=== PATIENT | male | born 1955 | race Caucasian/White ===

== ENCOUNTER 2017-08-05 13:34 | Emergency (ER) | payer BC, OTHER ==
[~2017-08-05] VITALS: Ht 180.3 cm; Wt 90.7 kg
[~2017-08-05 13:34] MED LIST: CETI10TA20 PO; PANT40TA2 PO
--- OUTSIDE RECORDS SUMMARY | 2017-08-05 13:38 | XMS REPORT | Continuity of Care Document ---
Author Author [facility] Organization [facility] Address Unknown Phone Unavailable Allergies Active Description Code Type Severity Reaction Onset Reported/Identified Relationship to Patient Clinical Status Yes No Known Drug Allergies [id number] Drug Allergy Unknown N/A 05/22/2015 Medications There is no data. Problems Date Dx Coded Attending Type Code Diagnosis Diagnosed By 03/27/2014 DEMARCO AUGUSTINE DO Ot 553.3 03/27/2014 DEMARCO AUGUSTINE DO Ot 787.20 05/22/2015 DEMARCO AUGUSTINE DO Ot K21.9 05/22/2015 DEMARCO AUGUSTINE DO Ot K29.70 05/22/2015 DEMARCO AUGUSTINE DO Ot K44.9 05/22/2015 DEMARCO AUGUSTINE DO Ot K57.90 05/22/2015 DEMARCO AUGUSTINE DO Ot K63.5 05/22/2015 DEMARCO AUUGSTINE DO Ot Z11.2 05/22/2015 DEMARCO AUGUSTINE DO Ot Z80.0 05/23/2015 DEMARCO AUGUSTINE DO Ot K21.9 05/23/2015 DEMARCO AUGUTSINE DO Ot K29.70 05/23/2015 DEMARCO AUGUSTINE DO Ot K44.9 05/23/2015 DEMARCO AUGUSTINE DO Ot K57.90 05/23/2015 DEMARCO AUGUSTINE DO Ot K63.5 05/23/2015 DEMARCO AUGUSTINE DO Ot Z11.2 05/23/2015 DEMARCO AUGUSTINE DO Ot Z80.0 Procedures There is no data. Results There is no data. Encounters ACCT No. Visit Date/Time Discharge Status Pt. Type Provider Facility Loc./Unit Complaint [id number] 05/22/2015 07:02:00 05/22/2015 09:25:00 DIS Outpatient DEMARCO AUGUSTINE DO [facility] [id number] 05/21/2015 05:34:00 05/21/2015 10:26:00 DIS Outpatient DEMARCO AUGUSTINE DO [facility] PREOP [id number] 11/18/2012 08:43:00 11/18/2012 23:59:59 CLS Outpatient DEMARCO AUGUSTINE DO [facility] RAD
[2017-08-05] MEDS ORDERED: ONDANSETRON 4 MG/2 ML (SDV) Z0FRAN IVP ONE (14:00)
[2017-08-05] MEDS ORDERED: MECLIZINE 25 MG (ANTIVERT) TAB PO ONE (14:00)
[2017-08-05] MEDS ORDERED: SCOPOLAMINE 1.5 MG (TRANSDERM-SCOP) PATCH TD ONE (14:00)
--- NOTE | 2017-08-05 14:04 | ED General ---
General Chief Complaint: Abdominal/GI Problems Stated Complaint: DIZZINESS,NAUSEA Nursing Triage Note: pt c/o nausea and dizziness since waking this morning. pt states he feels as if room is spinning. pt states he woke up with burleson. pt states he has never experienced anything like this before. Nursing Sepsis Screen: No Definite Risk Source of Information: Patient Exam Limitations: No Limitations History of Present Illness Date Seen by Provider: Aug 05, 2017 Time Seen by Provider: 13:44 Initial Comments PT ARRIVES VIA POV FROM HOME STATES HE HAD SUDDEN ONSET OF DIZZINESS, AROUND 0730 THIS AM WHILE AT WORK, HAD BEEN UP SINCE 0430 AND DID USUAL ACTIVITIES--WATERING OUTSIDE, ETC. THEN WENT TO WORK. DIZZINESS IS SPINNING SENSATION AND COMES AND GOES, IS WORSE WITH POSITION CHANGES AND HEAD MOVEMENTS HAD BEEN TO WORK THIS MORNING, AND DIZZINESS WAS A LITTLE BETTER, THEN AROUND 1300, HE CAME HOME AND LAID DOWN FOR 10 MINUTES AND WAS VERY DIZZY, THEN WHEN HE GOT UP IT WAS WORSE, AND WAS VERY NAUSEATED. NO VOMITING HAS HAD A HEADACHE SINCE WAKING--OCCIPITAL AREA--NOT UNUSUAL FOR PT TO HAVE A HEADACHE LIKE THIS, HAS NOT TAKEN ANYTHING FOR HEADACHE HEADACHE IS MILD AT THIS TIME NO VISION CHANGES, OTHER THAN THINGS ARE SPINNING WHEN THE DIZZINESS IS BAD. NO FEVER NO PARESTHESIAS OR MOTOR DEFICITS NO CHEST PAIN NO SHORTNESS OF BREATH NO PALPITATIONS NO RECENT ILLNESS, URI/SINUS SYMPTOMS. NO EAR COMPLAINTS NO HISTORY OF SIMILAR PCP: DR. CUELLAR Allergies and Home Medications Allergies Coded Allergies: No Known Drug Allergies (Verified , 05/22/15) Home Medications Cetirizine HCl 10 Mg Tablet, 10 MG PO DAILY, (Reported) Diazepam 5 Mg Tablet, 2.5-5 MG PO Q6H PRN for DIZZINESS Prescribed by: AIDEN HEALY on 08/05/171513 Meclizine HCl 25 Mg Tablet, 25-50 MG PO Q6H Prescribed by: AIDEN HEALY on 08/05/171513 Ondansetron 8 Mg Tab.rapdis, 8 MG PO Q4H Prescribed by: AIDEN HEALY on 08/05/171513 Pantoprazole Sodium 40 Mg Tablet.dr, 40 MG PO DAILY, (Reported) Scopolamine 1 Each Patch.td72, 1 EACH TD Q72 HOURS Prescribed by: AIDEN HEALY on 6/13/18 1514 Patient Home Medication List Home Medication List Reviewed: Yes Review of Systems Constitutional: see HPI; No chills, No diaphoresis; dizziness; No fever, No malaise, No weakness EENTM: no symptoms reported, other (HAS SEASONAL ALLERGIES, BUT NO PROBLEMS WITH TAKING ZYRTEC ON DAILY BASIS); No nose congestion Respiratory: no symptoms reported Cardiovascular: no symptoms reported Gastrointestinal: see HPI; No abdominal pain; nausea; No vomiting Genitourinary: no symptoms reported Musculoskeletal: no symptoms reported Skin: no symptoms reported Psychiatric/Neurological: See HPI, Headache; Denies Numbness, Denies Paresthesia, Denies Seizure, Denies Tingling, Denies Tremors, Denies Weakness Hematologic/Lymphatic: No Symptoms Reported Immunological/Allergic: no symptoms reported Past Zmfnkhx-Pquibk-Aclsqg Hx Patient Social History Alcohol Use: Denies Use Recreational Drug Use: No Recent Foreign Travel: No Contact w/Someone Who Travel: No Recent Infectious Disease Expo: No Immunizations Up To Date Date of Influenza Vaccine: Dec 25, 2014 Seasonal Allergies Seasonal Allergies: Yes Past Medical History Surgeries: Yes (LEFT SHOULDER SCOPE X2, /ROTATOR CUFF REPAIR) Orthopedic Respiratory: No Cardiac: No Neurological: No Gastrointestinal: Yes Gastroesophageal Reflux Musculoskeletal: Yes (LEFT SHOULDER ROTATOR CUFF REPAIR X 2 ) Endocrine: No HEENT: No Cancer: No Psychosocial: No Blood Disorders: No Physical Exam Vital Signs Vital Signs - First Documented 08/05/17 08/05/17 13:38 15:24 Temp 97.5 Pulse 16 Resp 12 B/P (MAP) 133/95 (108) Pulse Ox 93 O2 Delivery Room Air Capillary Refill : Less Than 3 Seconds General Appearance: No Apparent Distress, WD/WN HEENT: PERRL/EOMI, TMs Normal, Normal ENT Inspection, Pharynx Normal, Other ( NO SINUS TENDERNESS. 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; No Abnormal Gait Skin: Normal Color, Warm/Dry Progress/Results/Core Measures Suspected Sepsis Recent Fever Within 48 Hours: No Infection Criteria Present: None New/Unexplained Altered Menta: No Sepsis Screen: No Definite Risk SIRS Temperature:97.5 Pulse: 16 Respiratory Rate: Laboratory Tests 08/05/17 14:00: White Blood Count 5.8 Blood Pressure 133 /95 Mean: 108 Laboratory Tests 08/05/17 14:00: Creatinine 0.99, INR Comment 1.1, Platelet Count 193, Total Bilirubin 0.5 Results/Orders Lab Results Laboratory Tests Test 08/05/17 14:00 Range/Units White Blood Count 5.8 4.3-11.0 10^3/uL Red Blood Count 4.75 4.35-5.85 10^6/uL Hemoglobin 14.7 13.3-17.7 G/DL Hematocrit 41 40-54 % Mean Corpuscular Volume 87 80-99 FL Mean Corpuscular Hemoglobin 31 25-34 PG Mean Corpuscular Hemoglobin Concent 36 32-36 G/DL Red Cell Distribution Width 13.3 10.0-14.5 % Platelet Count 193 130-400 10^3/uL Mean Platelet Volume 10.3 7.4-10.4 FL Neutrophils (%) (Auto) 58 42-75 % Lymphocytes (%) (Auto) 27 12-44 % Monocytes (%) (Auto) 10 0-12 % Eosinophils (%) (Auto) 4 0-10 % Basophils (%) (Auto) 1 0-10 % Neutrophils # (Auto) 3.4 1.8-7.8 X 10^3 Lymphocytes # (Auto) 1.6 1.0-4.0 X 10^3 Monocytes # (Auto) 0.6 0.0-1.0 X 10^3 Eosinophils # (Auto) 0.3 0.0-0.3 10^3/uL Basophils # (Auto) 0.0 0.0-0.1 10^3/uL Prothrombin Time 13.7 12.2-14.7 SEC INR Comment 1.1 0.8-1.4 Activated Partial Thromboplast Time 28 24-35 SEC Sodium Level 139 135-145 MMOL/L Potassium Level 3.8 3.6-5.0 MMOL/L Chloride Level 106 98-107 MMOL/L Carbon Dioxide Level 23 21-32 MMOL/L Anion Gap 10 5-14 MMOL/L Blood Urea Nitrogen 14 7-18 MG/DL Creatinine 0.99 0.60-1.30 MG/DL Estimat Glomerular Filtration Rate > 60 BUN/Creatinine Ratio 14 Glucose Level 112 H 70-105 MG/DL Calcium Level 9.2 8.5-10.1 MG/DL Magnesium Level 2.0 1.8-2.4 MG/DL Total Bilirubin 0.5 0.1-1.0 MG/DL Aspartate Amino Transf (AST/SGOT) 28 5-34 U/L Alanine Aminotransferase (ALT/SGPT) 31 0-55 U/L Alkaline Phosphatase 60 40-136 U/L Troponin I < 0.30 <0.30 NG/ML Total Protein 7.0 6.4-8.2 GM/DL Albumin 4.1 3.2-4.5 GM/DL My Orders Orders - AIDEN HEALY DO Saline Lock/Iv-Start (08/05/17 13:55) Ekg Tracing (08/05/17 13:55) Monitor-Rhythm Ecg Trace Only (08/05/17 13:55) Ct Head Wo-R/O Stroke (08/05/17 13:55) Cbc With Automated Diff (08/05/17 13:55) Comprehensive Metabolic Panel (08/05/17 13:55) Magnesium (08/05/17 13:55) Protime With Inr (08/05/17 13:55) Partial Thromboplastin Time (08/05/17 13:55) Troponin I (08/05/17 13:55) Ondansetron Injection (Zofran Injectio (08/05/17 14:00) Scopolamine Patch (Transderm-Scop Patch) (08/05/17 14:00) Meclizine Tablet (Antivert Tablet) (08/05/17 14:00) Medications Given in ED Current Medications Medications Dose Ordered Sig/Jacob Route Start Time Stop Time Status Last Admin Dose Admin Meclizine HCl 50 mg ONCE ONCE PO 08/05/17 14:00 08/05/17 14:01 DC 08/05/17 14:10 50 MG Ondansetron HCl 4 mg ONCE ONCE IVP 08/05/17 14:00 08/05/17 14:01 DC 08/05/17 14:07 4 MG Scopolamine 1.5 mg ONCE ONCE TD 08/05/17 14:00 08/05/17 14:01 DC 08/05/17 14:11 1.5 MG Vital Signs/I&O 08/05/17 08/05/17 13:38 15:24 Temp 97.5 97.8 Pulse 16 68 Resp 12 B/P (MAP) 133/95 (108) 124/74 Pulse Ox 93 O2 Delivery Room Air Room Air Capillary Refill : Less Than 3 Seconds Blood Pressure Mean: 108 Progress Note : Progress Note SYMPTOMS IMPROVED WHEN LAYING STILL, INCREASED WITH MOVEMENTS OF HEAD AND WITH WHEELCHAIR RIDE TO/FROM XRAY DEPT. OFFERED ADDITIONAL MEDICATIONS FOR NAUSEA AND DIZZINESS, AND PT DECLINES AT THIS TIME. ADVISED PT THAT IF SYMPTOMS WORSENED, HE SHOULD RETURN TO ER. ECG Initial ECG Impression Date: Aug 05, 2017 Initial ECG Impression Time: 14:18 Initial ECG Rate: 62 Initial ECG Rhythm: Normal Sinus Initial ECG Comparisson: No Previous ECG Available Diagnostic Imaging Comments CT HEAD--NO ACUTE PROCESS, PER RADIOLOGIST REPORT @ 1450 Reviewed: Reviewed by Me Departure Impression Primary Impression: Vertigo Disposition: 01 HOME, SELF-CARE Condition: Stable Departure-Patient Inst. Referrals: ANGELA CUELLAR MD (PCP/Family) Primary Care Physician Patient Instructions: Vertigo (a Type of Dizziness) (DC), Vestibular Exercises Add. Discharge Instructions: SLOW POSITION CHANGES LOTS OF CLEAR LIQUIDS TYLENOL AND MOTRIN NEEDED FOR HEADACHE FOLLOW UP WITH DR. CUELLAR IN 1-2 DAYS FOR FURTHER CARE RETURN TO ER IF SYMPTOMS WORSEN All discharge instructions reviewed with patient and/or family. Voiced understanding. Scripts Diazepam (Valium) 5 Mg Tablet 2.5-5 MG PO Q6H PRN for DIZZINESS, #20 TAB Prov: AIDEN HEALY DO 08/05/17 Scopolamine (Transderm-Scop) 1 Each Patch.td72 1 EACH TD Q72 HOURS for Dizziness, #3 PATCH Prov: AIDEN HEALY DO 08/05/17 Ondansetron (Zofran Odt) 8 Mg Tab.rapdis 8 MG PO Q4H for Nausea/Vomiting, #14 TAB Prov: AIDEN HEALY DO 08/05/17 Meclizine HCl (Meclizine HCl) 25 Mg Tablet 25-50 MG PO Q6H for Dizziness, #30 TAB Prov: AIDEN HEALY DO 08/05/17 AIDEN HEALY DO Aug 05, 2017 14:04
[2017-08-05 14:09] LABS: BASOPHILS % (AUTO) 1 % (0-10); EOSINOPHILS # (AUTO) 0.3 10^3/uL (0.0-0.3); EOSINOPHILS % (AUTO) 4 % (0-10); HEMATOCRIT 41 % (40-54); HEMOGLOBIN 14.7 G/DL (13.3-17.7); LYMPHOCYTES # (AUTO) 1.6 X 10^3 (1.0-4.0); LYMPHOCYTES % (AUTO) 27 % (12-44); MEAN CORPUSCULAR HEMOGLOBIN 31 PG (25-34); MEAN CORPUSCULAR HGB CONC 36 G/DL (32-36); MEAN CORPUSCULAR VOLUME 87 FL (80-99); MEAN PLATELET VOLUME 10.3 FL (7.4-10.4); MONOCYTES # (AUTO) 0.6 X 10^3 (0.0-1.0); MONOCYTES % (AUTO) 10 % (0-12); NEUTROPHILS # (AUTO) 3.4 X 10^3 (1.8-7.8); NEUTROPHILS % (AUTO) 58 % (42-75); PLATELET COUNT 193 10^3/uL (130-400); RED BLOOD COUNT 4.75 10^6/uL (4.35-5.85); RED CELL DISTRIBUTION WIDTH 13.3 % (10.0-14.5); WHITE BLOOD COUNT 5.8 10^3/uL (4.3-11.0)
[2017-08-05 14:31] LABS: ALANINE AMINOTRANSFERASE 31 U/L (0-55); ALBUMIN 4.1 GM/DL (3.2-4.5); ALKALINE PHOSPHATASE 60 U/L (40-136); BILIRUBIN,TOTAL 0.5 MG/DL (0.1-1.0); BUN/CREATININE RATIO 14; CALCIUM 9.2 MG/DL (8.5-10.1); CARBON DIOXIDE 23 MMOL/L (21-32); CHLORIDE 106 MMOL/L (98-107); CREATININE SERUM 0.99 MG/DL (0.60-1.30); GFR ESTIMATED > 60; GLUCOSE 112 MG/DL (70-105); POTASSIUM 3.8 MMOL/L (3.6-5.0); SODIUM 139 MMOL/L (135-145)
[2017-08-05 14:32] LABS: INR 1.1 (0.8-1.4); PROTHROMBIN TIME PATIENT 13.7 SEC (12.2-14.7)
--- NOTE | 2017-08-05 14:43 | Diagnostic Imaging Report ---
INDICATION: Headache and dizziness. CT HEAD: Multiple contiguous axial CT images of the head were obtained. FINDINGS: Ventricles and sulci are within normal limits for size. There is no intracranial hemorrhage identified. There is no abnormal mass effect or shift of midline structures. IMPRESSION: Unremarkable CT of the head. Dictated by: Dictated on workstation # [id number]
[2017-08-05] MEDS ORDERED: MECL-106 PO (15:14)
[2017-08-05] MEDS ORDERED: ONDA8TAB9 PO (15:14)
[2017-08-05] MEDS ORDERED: SCOP1PAT11 TD (15:14)
[2017-08-05] MEDS ORDERED: DIAZ5TAB PO (15:14)
[2017-08-05 15:24] VITALS: BP 124/74
== END 2017-08-05 15:24 | disposition home or self-care (01) ==
LOC: EDUNIT# 13:34 → ER 13:35
DX: R42 Dizziness and giddiness (principal); K21.9 Gastro-esophageal reflux disease without esophagitis; Z98.890 Other specified postprocedural states
CPT/HCPCS: 36415; 70450; 80053; 83735; 84484; 85025; 85610; 85730; 93005; 93041; 96374

== ENCOUNTER 2018-09-01 15:30 | Outpatient (CLI) | payer OTHER ==
[~2018-09-01] VITALS: Ht 180.3 cm; Wt 90.7 kg
[~2018-09-01 15:30] MED LIST changes: +DIAZ5TAB PO; +MECL-106 PO; +ONDA8TAB9 PO; +SCOP1PAT11 TD
== END 2018-09-01 15:41 | disposition home or self-care (01) ==
LOC: PREOP 15:30
PROVIDERS: ATTEND Surgery
DX: Z01.818 Encounter for other preprocedural examination (principal)

== ENCOUNTER 2018-09-03 09:36 | Day surgery (SDC) | payer BC, OTHER ==
[~2018-09-03] VITALS: Ht 180.3 cm; Wt 90.7 kg
[2018-09-03] MEDS ORDERED: LACTATED RINGERS 1,000 ML IV ONE (09:41)
[2018-09-03 10:10] VITALS: BP 126/92
[2018-09-03] MEDS ORDERED: LACTATED RINGERS 1,000 ML IV STA (10:25)
[2018-09-03] MEDS ORDERED: HURRICAINE EXT TUBE (BENZOCAINE) XX PRN (10:30)
[2018-09-03] MEDS ORDERED: HURRICAINE EXT TUBE (BENZOCAINE) ONE (10:37)
[2018-09-03] MEDS ORDERED: proPOfol 200 MG/20 ML (DIPRIVAN) VIAL IV ONE (10:51)
[2018-09-03 11:35] VITALS: BP 117/67
--- NOTE | 2018-09-03 11:39 | Progress Note-Post Operative ---
Post-Operative Progess Note Surgeon (s)/Medical Oncology Physician (s) Surgeon DEMARCO AUGUSTINE DO Medical Oncology Physician: na Pre-Operative Diagnosis gerd, family history colon cancer Post-Operative Diagnosis hiatal hernia, diverticulosis Procedure & Operative Findings Date of Procedure 09/03/18 Procedure Performed/Findings egd c biopsies, colonoscopy Anesthesia Type per mda Estimated Blood Loss Estimated blood loss (mL): none Specimens/Packing Specimens Removed antrum, ge DEMARCO AUGUSTINE DO Sep 03, 2018 11:39
[2018-09-03 11:40] VITALS: BP 116/72
[2018-09-03] MEDS ORDERED: SUCR1TAB36 PO (11:40)
--- NOTE | 2018-09-03 11:41 | Discharge Inst-Simple/Standard ---
Discharge Inst-Standard Discharge Medications New, Converted or Re-Newed RX: Transmitted to Pharmacy Patient Instructions/Follow Up Plan of Care/Instructions/FU: 2-3 weeks debbie Activity as Tolerated: Yes Discharge Diet: Regular Diet (high fiber) DEMARCO AUGUSTINE DO Sep 03, 2018 11:41
[2018-09-03 12:10] VITALS: BP 131/90
--- NOTE | 2018-09-03 13:11 | Anesthesia-General Post-Op ---
MAC Patient Condition Mental Status/LOC: Same as Preop Cardiovascular: Satisfactory Nausea/Vomiting: Absent Respiratory: Satisfactory Pain: Controlled Complications: Absent Post Op Complications Complications None Follow Up Care/Instructions Patient Instructions None needed. Anesthesiology Discharge Order Discharge Order Patient is doing well, no complaints, stable vital signs, no apparent adverse anesthesia problems. No complications reported per nursing. IZABELLA HE CRNA Sep 03, 2018 13:11
--- NOTE | 2018-09-03 15:43 | OPERATIVE REPORT ---
DATE OF SERVICE: 09/03/2018 PREOPERATIVE DIAGNOSES: 1. Dysphagia. 2. Family history of colon cancer. POSTOPERATIVE DIAGNOSES: 1. Hiatal hernia. 2. Diverticulosis. PROCEDURE: EGD with biopsies and colonoscopy. SURGEON: Demarco Celis DO ANESTHESIA: Per MDA. ESTIMATED BLOOD LOSS: None. COMPLICATIONS: None. INDICATIONS: The patient is a 63-year-old male with family history of colon cancer and also been having some recent dysphagia. He understands risks and benefits of procedure and wished to proceed with procedure. Consent was signed and on the chart. DESCRIPTION OF PROCEDURE: The patient was taken to the endoscopy suite, placed in left lateral recumbent position. Timeout was performed. Scope was inserted in the mouth, down the esophagus, stomach and into the duodenum without difficulty. There were no polyps, masses or ulcerations of the duodenum. Scope was then slowly retracted back where it was further insufflated. There were no polyps, masses or ulcerations within the antrum. Biopsy of the antrum was obtained. Scope was retroflexed noting a small polyp and small hiatal hernia, no other pathology noted. Scope was returned to its normal position, slowly withdrawn to the distal esophagus, which had normal appearance. No polyps, masses or ulcerations. No erythematous changes. Biopsy of the GE junction was obtained. Scope was then slowly retracted back to completely removed noting no other pathology. Digital rectal exam was performed. There were no palpable polyps, masses or ulcerations. Scope was inserted in the rectum and advanced all the way to the cecum with minimal difficulty. Prep was adequate. Scope was then slowly retracted back. There were no polyps, masses or ulcerations within the cecum, ascending, transverse, descending and sigmoid colon. Throughout the colon, had minimal to moderate amount of diverticulosis present. Once in the rectum, scope was retroflexed noting no other pathology. Scope was returned to its normal position, slowly withdrawn until completely removed. The patient tolerated procedure well without any complications. He was taken to recovery room in stable condition. RECOMMENDATIONS: The patient will consider adding Carafate 1 gram four times a day to see if any improvement. The patient will need repeat colonoscopy in 5 years due to family history of colon cancer. If he has any issues before that, he should be seen at that time. The patient was also recommended high fiber diet due to diverticulosis. Job ID: [id number] DocumentID: [id number] Dictated Date: 09/03/2018 11:48:23 Medical Administrator Date: 09/03/2018 15:42:47 Dictated By: DEMARCO CELIS DO
--- OUTSIDE RECORDS SUMMARY | 2018-09-03 18:53 | XMS REPORT | Continuity of Care Document ---
Author Organization Unknown Address Unknown Allergies Active Description Code Type Severity Reaction Onset Reported/Identified Relationship to Patient Clinical Status Yes No Known Drug Allergies [id number] Drug Allergy Unknown N/A 09/01/2018 Medications There is no data. Problems Date Dx Coded Attending Type Code Diagnosis Diagnosed By 03/27/2014 DEMARCO AUGUSTINE DO Ot 553.3 03/27/2014 DEMARCO AUGUSTINE DO Ot 787.20 05/22/2015 DEMARCO AUGUSTINE DO Ot K21.9 GASTRO-ESOPHAGEAL REFLUX DISEASE WITHOUT 05/22/2015 DEMARCO AUGUSTINE DO Ot K29.70 GASTRITIS, UNSPECIFIED, WITHOUT BLEEDING 05/22/2015 DEMARCO AUGUSTINE DO Ot K44.9 DIAPHRAGMATIC HERNIA WITHOUT OBSTRUCTION 05/22/2015 DEMARCO AUGUSTINE DO Ot K57.90 DVRTCLOS OF INTEST, PART UNSP, W/O PERF 05/22/2015 DEMARCO AUGUSTINE DO Ot K63.5 POLYP OF COLON 05/22/2015 DEMARCO AUGUSTINE DO Ot Z11.2 ENCOUNTER FOR SCREENING FOR OTHER BACTER 05/22/2015 DEMARCO AUGUSTINE DO Ot Z80.0 FAMILY HISTORY OF MALIGNANT NEOPLASM OF 05/23/2015 DEMARCO AUGUSTINE DO Ot K21.9 05/23/2015 DEMARCO AUGUSTINE DO Ot K29.70 05/23/2015 DEMARCO AUGUSTINE DO Ot K44.9 05/23/2015 DEMARCO AUGUSTINE DO Ot K57.90 05/23/2015 DEMARCO AUGUSTINE DO Ot K63.5 05/23/2015 DEMARCO AUGUSTINE DO Ot Z11.2 05/23/2015 DEMARCO AUGUSTINE DO Ot Z80.0 08/05/2017 DEMARCO AUGUSTINE DO Ot 553.3 DIAPHRAGMATIC HERNIA 08/05/2017 DEMARCO AUGUSTINE DO Ot 787.20 DYSPHAGIA, UNSPECIFIED 08/05/2017 JONATHON HEALY DOA K Ot K21.9 GASTRO-ESOPHAGEAL REFLUX DISEASE WITHOUT 08/05/2017 NIRAJ DOAIDEN Ot R42 DIZZINESS AND GIDDINESS 08/05/2017 NIRAJ , AIDEN K Ot Z98.890 OTHER SPECIFIED POSTPROCEDURAL STATES 08/07/2017 NIRAJ AIDEN ROBLES Ot K21.9 GASTRO-ESOPHAGEAL REFLUX DISEASE WITHOUT 08/07/2017 NIRAJ DO, AIDEN Bustillo Ot R42 DIZZINESS AND GIDDINESS 08/07/2017 NIRAJ DO, AIDEN Bustillo Ot Z98.890 OTHER SPECIFIED POSTPROCEDURAL STATES 08/31/2018 AUGUSTINE DO, DEMARCO D Ot Z01.818 ENCOUNTER FOR OTHER PREPROCEDURAL EXAMIN 09/01/2018 AUGUSTINE DO, DEMARCO D Ot Z01.818 ENCOUNTER FOR OTHER PREPROCEDURAL EXAMIN 09/01/2018 AUGUSTINE DO, DEMARCO D Ot Z01.818 ENCOUNTER FOR OTHER PREPROCEDURAL EXAMIN Procedures There is no data. Results Test Result Range Complete blood count (CBC) with automated white blood cell (WBC) differential - 08/05/17 14:00 Blood leukocytes automated count (number/volume) 5.8 10*3/uL 4.3-11.0 Blood erythrocytes automated count (number/volume) 4.75 10*6/uL 4.35-5.85 Venous blood hemoglobin measurement (mass/volume) 14.7 g/dL 13.3-17.7 Blood hematocrit (volume fraction) 41 % 40-54 Automated erythrocyte mean corpuscular volume 87 [foz_us] 80-99 Automated erythrocyte mean corpuscular hemoglobin (mass per erythrocyte) 31 pg 25-34 Automated erythrocyte mean corpuscular hemoglobin concentration measurement (mass/volume) 36 g/dL 32-36 Automated erythrocyte distribution width ratio 13.3 % 10.0- 14.5 Automated blood platelet count (count/volume) 193 10*3/uL 130-400 Automated blood platelet mean volume measurement 10.3 [foz_us] 7.4-10.4 Automated blood neutrophils/100 leukocytes 58 % 42-75 Automated blood lymphocytes/100 leukocytes 27 % 12-44 Blood monocytes/100 leukocytes 10 % 0-12 Automated blood eosinophils/100 leukocytes 4 % 0-10 Automated blood basophils/100 leukocytes 1 % 0-10 Blood neutrophils automated count (number/volume) 3.4 10*3 1.8-7.8 Blood lymphocytes automated count (number/volume) 1.6 10*3 1.0-4.0 Blood monocytes automated count (number/volume) 0.6 10*3 0.0- 1.0 Automated eosinophil count 0.3 10*3/uL 0.0-0.3 Automated blood basophil count (count/volume) 0.0 10*3/uL 0.0-0.1 Comprehensive metabolic panel - 08/05/17 14:00 Serum or plasma sodium measurement (moles/volume) 139 mmol/L 135-145 Serum or plasma potassium measurement (moles/volume) 3.8 mmol/L 3.6-5.0 Serum or plasma chloride measurement (moles/volume) 106 mmol/L 98-107 Carbon dioxide 23 mmol/L 21-32 Serum or plasma anion gap determination (moles/volume) 10 mmol/L 5-14 Serum or plasma urea nitrogen measurement (mass/volume) 14 mg/dL 7-18 Serum or plasma creatinine measurement (mass/volume) 0.99 mg/dL 0.60-1.30 Serum or plasma urea nitrogen/creatinine mass ratio 14 NRG Serum or plasma creatinine measurement with calculation of estimated glomerular filtration rate > NRG Serum or plasma glucose measurement (mass/volume) 112 mg/dL 70-105 Serum or plasma calcium measurement (mass/volume) 9.2 mg/dL 8.5-10.1 Serum or plasma total bilirubin measurement (mass/volume) 0.5 mg/dL 0.1-1.0 Serum or plasma alkaline phosphatase measurement (enzymatic activity/volume) 60 U/L 40-136 Serum or plasma aspartate aminotransferase measurement (enzymatic activity/volume) 28 U/L 5-34 Serum or plasma alanine aminotransferase measurement (enzymatic activity/volume) 31 U/L 0-55 Serum or plasma protein measurement (mass/volume) 7.0 g/dL 6.4-8.2 Serum or plasma albumin measurement (mass/volume) 4.1 g/dL 3.2-4.5 Magnesium - 08/05/17 14:00 Magnesium 2.0 mg/dL 1.8-2.4 PT panel in platelet poor plasma by coagulation assay - 08/05/17 14:00 Prothrombin time (PT) in platelet poor plasma by coagulation assay 13.7 s 12.2-14.7 INR in platelet poor plasma or blood by coagulation assay 1.1 0.8-1.4 Activated partial thromboplastin time (aPTT) in platelet poor plasma bycoagulation assay - 08/05/17 14:00 Activated partial thromboplastin time (aPTT) in platelet poor plasma bycoagulation assay 28 s 24-35 Serum or plasma troponin i.cardiac measurement (mass/volume) - 08/05/17 14:00 Serum or plasma troponin i.cardiac measurement (mass/volume) < ng/mL <0.30 Encounters ACCT No. Visit Date/Time Discharge Status Pt. Type Provider Facility Loc./Unit Complaint [id number] 09/01/2018 15:30:00 09/01/2018 15:41:00 DIS Outpatient DEMARCO AUGUSTINE DO Via [facility] PREOP COLONOSCOPY [id number] 08/05/2017 13:35:00 08/05/2017 15:24:00 DIS Emergency NIRAJ AIDEN ROBLES [facility] ER DIZZINESS,NAUSEA [id number] 05/22/2015 07:02:00 05/22/2015 09:25:00 [facility] [id number] 05/21/2015 05:34:00 05/21/2015 10:26:00 DIS Outpatient DEMARCO AUGUSTINE DO [facility] PREOP [id number] 11/18/2012 08:43:00 11/18/2012 23:59:59 CLS Outpatient DEMARCO AUGUSTINE DO [facility] RAD DYSPHAGIA [id number] 09/03/2018 09:36:00 ACT Outpatient DEMARCO AUGUSTINE DO [facility] ENDO SCREENING
== END 2018-09-03 12:10 | disposition home or self-care (01) ==
LOC: ENDO 09:36
PROVIDERS: ATTEND Surgery
DX: Z12.11 Encounter for screening for malignant neoplasm of colon (principal); K44.9 Diaphragmatic hernia without obstruction or gangrene; K57.30 Diverticulosis of large intestine without perforation or abscess without bleeding; R13.10 Dysphagia, unspecified; Z80.0 Family history of malignant neoplasm of digestive organs; K31.7 Polyp of stomach and duodenum; K21.9 Gastro-esophageal reflux disease without esophagitis; Z79.899 Other long term (current) drug therapy

== ENCOUNTER 2018-11-17 14:02 | Inpatient (IN) | payer BC ==
[~2018-11-17] VITALS: Ht 177.8 cm; Wt 91.6 kg
[~2018-11-17 14:02] MED LIST changes: -PANT40TA3 PO; -PSYL1PAC10 PO
[2018-11-17 14:08] VITALS: BP 114/81
[2018-11-17] MEDS ORDERED: CATHETER FLUSH 10 ML SYR IV PRN (14:30)
[2018-11-17 14:31] VITALS: BP 114/81
--- NOTE | 2018-11-17 14:31 | Consultation - Hospitalist ---
HPI History of Present Illness: HPI/Chief Complaint Pt is a 63yoCM with a PMH of GERD who was admitted for SBO. He states his symptoms started yesterday at 10AM yesterday. He states he had severe abdominal pain that he described as cramping. This started after he took three teaspoons of Metamucil yesterday. He also had nausea nd vomiting. This morning his PCP arranged an outpatient CT Abdomen which reportedly revealed an SBO for which his is admitted. He states his pain is currently "not bad" and rates it a 4/10. I am consulted for medical management. Source: patient, family Date Seen 11/17/18 Attending Physician Armand Celis DO PCP Volodymyr Dooley MD Referring Physician Date of Admission Nov 17, 2018 at 14:02 Home Medications & Allergies Home Medications Reviewed patient Home Medication Reconciliation performed by pharmacy medication reconciliations field contact technician and/or nursing. Patients Allergies have been reviewed. Allergies Allergies Coded Allergies No Known Drug Allergies (Verified09/01/18) Past Oqrzulc-Xlceoj-Rzfrsg Hx Past Med/Social Hx: Reviewed Nursing Past Med/Soc Hx Patient Social History Employed/Student: employed Alcohol Use: Denies Use Recreational Drug Use: No Smoking Status: Never a Smoker 2nd Hand Smoke Exposure: No Recent Foreign Travel: No (N) Contact w/other who traveled: No Recent Hopitalizations: No Immunizations Up To Date Date of Influenza Vaccine: Nov 30, 2017 Seasonal Allergies Seasonal Allergies: Yes Past Medical History Surgeries: Orthopedic (shoulder) Sexually Transmitted Disease: No HIV/AIDS: No Gastrointestinal: Gastroesophageal Reflux Musculoskeletal: Arthritis Loss of Vision: Denies Hearing Impairment: Denies Cancer: Skin History of Blood Disorders: No Adverse Reaction to Blood Ware: No (N/A) Family History Reviewed Nursing Family Hx No Pertinent Family Hx Review of Systems Constitutional: no symptoms reported Respiratory: no symptoms reported Cardiovascular: no symptoms reported Gastrointestinal: see HPI Genitourinary: no symptoms reported Musculoskeletal: muscle cramps Skin: no symptoms reported Psychiatric/Neurological: No Symptoms Reported Physical Exam Physical Exam Vital Signs Vital Signs - First Documented 11/17/18 14:08 Temp 37.4 Pulse 65 Resp 18 B/P (MAP) 114/81 (92) Pulse Ox 95 O2 Delivery Room Air Capillary Refill : Height, Weight, BMI Height: 5'11.00" Weight: 200lbs. 0.0oz. [id number]; 27.9 BMI Method:Stated General Appearance: No Apparent Distress, WD/WN HEENT: PERRL/EOMI, Moist Mucous Membranes; No Scleral Icterus (L), No Scleral Icterus (R) Neck: Normal Inspection; No Thyromegaly Respiratory: Lungs Clear, No Accessory Muscle Use, No Respiratory Distress Cardiovascular: Regular Rate, Rhythm, No Murmur Gastrointestinal: Soft, Abnormal Bowel Sounds (present but slow); No Distended, No Guarding, No Rebound; Tenderness (very mild, not localized) Extremity: Normal Capillary Refill, No Calf Tenderness, No Pedal Edema Neurologic/Psychiatric: Alert, Oriented x3, Normal Mood/Affect Skin: Normal Color, Warm/Dry Results Results/Procedures Labs Patient resulted labs reviewed. Imaging: Reviewed Imaging Report Assessment/Plan Assessment and Plan Assess & Plan/Chief Complaint SBO NPO Bowel rest Discussed with Dr Celis- will hold off on NGT at this time give minimal distention Morphine for pain prn Zofran for nausea prn GERD Will start Protonix IV to replace home dose NS @125ml/hr NPO SCDs Diagnosis/Problems Diagnosis/Problems (1) Small bowel obstruction Status: Acute Clinical Quality Measures DVT/VTE Risk/Contraindication: Risk Factor Score Per Nursin RFS Level Per Nursing on Admit: 1=Low/No VTE PPX GUY ARREOLA MD Nov 17, 2018 14:31
[2018-11-17] MEDS: ONDANSETRON 4 MG/2 ML (SDV) Z0FRAN IV PRN (14:43)
[2018-11-17] MEDS ORDERED: PANT40TA3 PO (14:48)
[2018-11-17] MEDS ORDERED: PSYL1PAC10 PO (14:48)
[2018-11-17] MEDS: NS IV 1000 ML 1,000 ML IV SCH ×2 (15:08→23:10)
[2018-11-17 15:47] LABS: BASOPHILS % (AUTO) 0 % (0-10); EOSINOPHILS # (AUTO) 0.1 10^3/uL (0.0-0.3); EOSINOPHILS % (AUTO) 1 % (0-10); HEMATOCRIT 46 % (40-54); LYMPHOCYTES # (AUTO) 1.4 X 10^3 (1.0-4.0); LYMPHOCYTES % (AUTO) 16 % (12-44); MEAN CORPUSCULAR HEMOGLOBIN 30 PG (25-34); MEAN CORPUSCULAR HGB CONC 35 G/DL (32-36); MEAN CORPUSCULAR VOLUME 86 FL (80-99); MEAN PLATELET VOLUME 10.2 FL (7.4-10.4); MONOCYTES # (AUTO) 1.1 X 10^3 (0.0-1.0); MONOCYTES % (AUTO) 13 % (0-12); NEUTROPHILS # (AUTO) 6.1 X 10^3 (1.8-7.8); NEUTROPHILS % (AUTO) 71 % (42-75); PLATELET COUNT 188 10^3/uL (130-400); RED CELL DISTRIBUTION WIDTH 13.3 % (10.0-14.5); WHITE BLOOD COUNT 8.6 10^3/uL (4.3-11.0)
[2018-11-17 16:00] VITALS: BP 120/76
[2018-11-17 16:14] LABS: ALANINE AMINOTRANSFERASE 28 U/L (0-55); ALBUMIN 4.2 GM/DL (3.2-4.5); ALKALINE PHOSPHATASE 61 U/L (40-136); BILIRUBIN,TOTAL 0.6 MG/DL (0.1-1.0); BUN/CREATININE RATIO 14; CALCIUM 9.9 MG/DL (8.5-10.1); CARBON DIOXIDE 24 MMOL/L (21-32); CHLORIDE 104 MMOL/L (98-107); GFR ESTIMATED > 60; GLUCOSE 100 MG/DL (70-105); POTASSIUM 3.8 MMOL/L (3.6-5.0); SODIUM 140 MMOL/L (135-145); TOTAL PROTEIN 7.3 GM/DL (6.4-8.2)
[2018-11-17 20:00] VITALS: BP 112/71
--- NOTE | 2018-11-17 20:47 | History & Physical-Surgical ---
[facility] 11/17/182046: History of Present Illness History of Present Illness Reason for visit/HPI This is a 63 year old male that presents with partial small bowel obstruction and abdominal pain. Patient reports that he felt crampy abdominal pain at 10am yesterday while driving. Patient denies ever experiencing this in the past. Eating makes the pain worse and not eating makes the pain better, however patient is not in any pain at this time. Patient has had 7 episodes of non- bloody emesis starting at 4pm yesterday. Patient has not passed gas but had a bowel movement at 9:30am today. Patient denied blood or any change in his stool. Patients abdomen was not distended nor tender to palpation. Date of Admission Nov 17, 2018 at 14:02 Date Seen by a Provider: Nov 17, 2018 Time Seen by a Provider: 18:00 I consulted on this patient on 11/17/18 18:00 Attending Physician Demarco Celis DO Admitting Physician Volodymyr Dooley MD Consult Allergies and Home Medications Allergies Coded Allergies: No Known Drug Allergies (Verified , 09/01/18) Home Medications Cetirizine HCl 10 Mg Tablet, 10 MG PO DAILY, (Reported) Pantoprazole Sodium 40 Mg Tablet.dr, 40 MG PO DAILY, (Reported) Psyllium Husk (with Sugar) 3.4 Gm Powd.pack, 3.4 GM PO DAILY, (Reported) Patient Home Medication List Home Medication List Reviewed: Yes Past Rwswsqi-Rztdmz-Xdpdqk Hx Patient Social History Alcohol Use: Denies Use Recreational Drug Use: No Smoking Status: Never a Smoker 2nd Hand Smoke Exposure: No Recent Foreign Travel: No Contact w/Someone Who Travel: No Recent Infectious Disease Expo: No Recent Hopitalizations: No Immunizations Up To Date Date of Influenza Vaccine: Nov 30, 2017 Seasonal Allergies Seasonal Allergies: Yes Surgeries History of Surgeries: Yes (LEFT SHOULDER SCOPE X2) Surgeries: Orthopedic (shoulder) Respiratory History of Respiratory Disorde: No Cardiovascular History of Cardiac Disorders: No Neurological History of Neurological Disord: No Reproductive System Sexually Transmitted Disease: No HIV/AIDS: No Genitourinary History of Genitourinary Disor: No Gastrointestinal History of Gastrointestinal Di: Yes Gastrointestinal Disorders: Gastroesophageal Reflux Musculoskeletal History of Musculoskeletal Dis: Yes Musculoskeletal Disorders: Arthritis Endocrine History of Endocrine Disorders: No HEENT History of HEENT Disorders: No Loss of Vision: Denies Hearing Impairment: Denies Cancer History of Cancer: No Cancer: Skin Psychosocial History of Psychiatric Problem: No Integumentary History of Skin or Integumenta: No Blood Transfusions History of Blood Disorders: No Adverse Reaction to a Blood Tr: No (N/A) Family Medical History Significant Family History: No Pertinent Family Hx Family Medial History: Hypertension 19 MOTHER Review of Systems Constitutional: no symptoms reported EENTM: no symptoms reported Respiratory: no symptoms reported Cardiovascular: no symptoms reported Gastrointestinal: see HPI Genitourinary: no symptoms reported Musculoskeletal: no symptoms reported Skin: no symptoms reported Psychiatric/Neurological: No Symptoms Reported Physical Exam Vital Signs Vital Signs - First Documented 11/17/18 14:08 Temp 37.4 Pulse 65 Resp 18 B/P (MAP) 114/81 (92) Pulse Ox 95 O2 Delivery Room Air Capillary Refill : Height, Weight, BMI Height: 5'11.00" Weight: 200lbs. 0.0oz. 90.563461oa; 28.97 BMI Method:Stated General Appearance: No Apparent Distress, WD/WN HEENT: PERRL/EOMI Neck: Normal Inspection, Non Tender, Supple Respiratory: No Accessory Muscle Use, No Respiratory Distress Cardiovascular: Regular Rate, Rhythm, No Edema Gastrointestinal: Non Tender, Soft; No Distended, No Guarding, No Hernia, No Rebound, No Tenderness Rectal: Deferred Back: No CVA Tenderness Extremity: Normal Inspection, No Pedal Edema Neurologic/Psychiatric: Alert, Oriented x3, No Motor/Sensory Deficits, Normal Mood/Affect, final tester II-XII Norm as Tested Skin: Normal Color, Warm/Dry Lymphatic: No Adenopathy Data Review Labs Laboratory Tests 11/17/18 15:40: White Blood Count 8.6, Red Blood Count 5.29, Hemoglobin 16.0, Hematocrit 46, Mean Corpuscular Volume 86, Mean Corpuscular Hemoglobin 30, Mean Corpuscular Hemoglobin Concent 35, Red Cell Distribution Width 13.3, Platelet Count 188, Mean Platelet Volume 10.2, Neutrophils (%) (Auto) 71, Lymphocytes (%) (Auto) 16, Monocytes (%) (Auto) 13H, Eosinophils (%) (Auto) 1, Basophils (%) (Auto) 0, Neutrophils # (Auto) 6.1, Lymphocytes # (Auto) 1.4, Monocytes # (Auto) 1.1H, Eosinophils # (Auto) 0.1, Basophils # (Auto) 0.0, Sodium Level 140, Potassium Level 3.8, Chloride Level 104, Carbon Dioxide Level 24, Anion Gap 12, Blood Urea Nitrogen 17, Creatinine 1.20, Estimat Glomerular Filtration Rate > 60, BUN/Creatinine Ratio 14, Glucose Level 100, Calcium Level 9.9, Corrected Calcium 9.7, Total Bilirubin 0.6, Aspartate Amino Transf (AST/SGOT) 23, Alanine Aminotransferase (ALT/SGPT) 28, Alkaline Phosphatase 61, Total Protein 7.3, Albumin 4.2 Assessment/Plan Assessment/Plan Assessment/Plan Partial small bowel obstruction Abdominal pain at onset of symptoms yesterday - resolved today Small bowel follow through NPO IV Fluids Clinical Quality Measures DVT/VTE Risk/Contraindication: Risk Factor Score Per Nursin RFS Level Per Nursing on Admit: 1=Low/No VTE PPX EDMARCO CELIS DO 11/18/18 0820: History of Present Illness History of Present Illness Reason for visit/HPI seen by Dr. Dooley in office this morning. Had crampy abdominal pain periumbilical yesterday and continued this morning. Having nausea and emesis with any intake. Had Ct scan abd/pelvis and suggestive of small bowel obstruction. Currently pain is resolved, but not passing any flatus today. His abdomen he states was distended but has gone down. Small bm this morning. No blood in stools. Denies fever sweats chills shortness of breath or chest pain. Allergies and Home Medications Allergies Coded Allergies: No Known Drug Allergies (Verified , 09/01/18) Home Medications Cetirizine HCl 10 Mg Tablet, 10 MG PO DAILY, (Reported) Pantoprazole Sodium 40 Mg Tablet.dr, 40 MG PO DAILY, (Reported) Psyllium Husk (with Sugar) 3.4 Gm Powd.pack, 3.4 GM PO DAILY, (Reported) Patient Home Medication List Home Medication List Reviewed: Yes Past Ifqiisw-Ulneqp-Falhlh Hx Patient Social History Alcohol Use: Denies Use Recreational Drug Use: No Smoking Status: Never a Smoker Surgeries Surgeries: Orthopedic (shoulder) Respiratory History of Respiratory Disorde: No Cardiovascular History of Cardiac Disorders: No Neurological History of Neurological Disord: No Gastrointestinal History of Gastrointestinal Di: Yes Gastrointestinal Disorders: Gastroesophageal Reflux Musculoskeletal History of Musculoskeletal Dis: Yes Musculoskeletal Disorders: Arthritis HEENT History of HEENT Disorders: No Hearing Impairment: Denies Cancer History of Cancer: No Psychosocial History of Psychiatric Problem: No Family Medical History Significant Family History: No Pertinent Family Hx Family Medial History: Hypertension 19 MOTHER Review of Systems Constitutional: no symptoms reported EENTM: no symptoms reported Respiratory: no symptoms reported Cardiovascular: no symptoms reported Gastrointestinal: see HPI Genitourinary: no symptoms reported Musculoskeletal: no symptoms reported Skin: no symptoms reported Psychiatric/Neurological: No Symptoms Reported Physical Exam General Appearance: No Apparent Distress, WD/WN HEENT: PERRL/EOMI Neck: Normal Inspection, Non Tender, Supple Respiratory: Chest Non Tender, No Accessory Muscle Use, No Respiratory Distress Cardiovascular: Regular Rate, Rhythm Gastrointestinal: Non Tender; No Distended, No Guarding, No Hernia Rectal: Deferred Back: No CVA Tenderness Extremity: Normal Inspection, No Pedal Edema Neurologic/Psychiatric: Alert, Oriented x3, No Motor/Sensory Deficits, Normal Mood/Affect, final tester II-XII Norm as Tested Skin: Normal Color, Warm/Dry Lymphatic: No Adenopathy Assessment/Plan Assessment/Plan Admission Diagonsis abdominal pain periumbilical psbo Admission Status: Observation Assessment/Plan partial small bowel obstruction abdominal pain periumbilical npo iv fluids will give bowel rest today and small bowel follow through in am if normal will start on diet if continues to feel well. Supervisory-Addendum Brief Verification & Attestation Participated in pt care: history, MDM, physical Personally performed: exam, history, MDM, supervision of care Care discussed with: Medical Student Procedures: n/a Results interpretation: Verified all documentation Verification and Attestation of Medical Student E/M Service A medical student performed and documented this service in my presence. I reviewed and verified all information documented by the medical student and made modifications to such information, when appropriate. I personally performed the physical exam and medical decision making. Demarco Celis, Nov 17, 2018,18:50 [facility] Nov 17, 2018 20:47 DEMARCO CELIS DO Nov 18, 2018 08:20
[2018-11-17] MEDS: morphine INJ 4 MG/ML 1 ML (VIAL/SYRINGE) IV PRN (21:43)
[2018-11-17 23:59] VITALS: BP 104/70
[2018-11-18 04:00] VITALS: BP 103/65
[2018-11-18] MEDS: morphine INJ 4 MG/ML 1 ML (VIAL/SYRINGE) IV PRN (06:04)
--- NOTE | 2018-11-18 06:11 | NUR ---
PT REQUEST 1MG OF MORPHINE FOR HEADACHE. PT STATES THAT HE GETS HEADACHES A COUPLE TIMES A WEEK SO THIS IS NOT UNUSUAL FOR HIM.
[2018-11-18 06:19] LABS: BASOPHILS % (AUTO) 0 % (0-10); EOSINOPHILS # (AUTO) 0.2 10^3/uL (0.0-0.3); EOSINOPHILS % (AUTO) 3 % (0-10); HEMATOCRIT 44 % (40-54); HEMOGLOBIN 14.9 G/DL (13.3-17.7); LYMPHOCYTES # (AUTO) 1.6 X 10^3 (1.0-4.0); LYMPHOCYTES % (AUTO) 24 % (12-44); MEAN CORPUSCULAR HEMOGLOBIN 30 PG (25-34); MEAN CORPUSCULAR HGB CONC 34 G/DL (32-36); MEAN CORPUSCULAR VOLUME 88 FL (80-99); MEAN PLATELET VOLUME 10.5 FL (7.4-10.4); MONOCYTES # (AUTO) 0.8 X 10^3 (0.0-1.0); MONOCYTES % (AUTO) 12 % (0-12); NEUTROPHILS # (AUTO) 3.9 X 10^3 (1.8-7.8); NEUTROPHILS % (AUTO) 60 % (42-75); PLATELET COUNT 177 10^3/uL (130-400); RED CELL DISTRIBUTION WIDTH 13.5 % (10.0-14.5); WHITE BLOOD COUNT 6.5 10^3/uL (4.3-11.0)
[2018-11-18 06:51] LABS: ALANINE AMINOTRANSFERASE 24 U/L (0-55); ALBUMIN 3.7 GM/DL (3.2-4.5); ALKALINE PHOSPHATASE 63 U/L (40-136); BILIRUBIN,TOTAL 0.6 MG/DL (0.1-1.0); BUN/CREATININE RATIO 14; CALCIUM 8.9 MG/DL (8.5-10.1); CARBON DIOXIDE 25 MMOL/L (21-32); CHLORIDE 107 MMOL/L (98-107); GFR ESTIMATED > 60; GLUCOSE 93 MG/DL (70-105); POTASSIUM 4.1 MMOL/L (3.6-5.0); SODIUM 140 MMOL/L (135-145); TOTAL PROTEIN 6.5 GM/DL (6.4-8.2)
[2018-11-18] MEDS ORDERED: DIATRIZOATE MEGLUM/SODIUM 37% 120 ML (GASTROGRAFIN) PO ONE (08:45)
[2018-11-18 09:00] VITALS: BP 125/70
[2018-11-18] MEDS ORDERED: PANTOPRAZOLE 40 MG (PROTONIX) VIAL IV SCH (09:00)
--- NOTE | 2018-11-18 09:30 | Diagnostic Imaging Report ---
INDICATION: Partial small bowel obstruction. The patient ingested contrast material and serial radiographs of the abdomen were obtained. The bowel gas pattern has improved when compared with the boiler tube reamer radiograph from the CT study one day earlier. No dilated small bowel loops are identified. Colon is unremarkable. Postingestion radiograph shows normal appearance to the stomach. There is prompt emptying into the small bowel. There is normal transit of contrast through the small bowel to the right colon. No obstruction is seen. Mucosal fold pattern is unremarkable. No mass is identified. IMPRESSION: Unremarkable small bowel study. There is no evidence of small bowel obstruction. Dictated by: Dictated on workstation # [id number]
[2018-11-18] MEDS ORDERED: KETOROLAC 15 MG/ML VIAL IVP PRN (10:00)
[2018-11-18] MEDS: NS IV 1000 ML 1,000 ML IV SCH ×2 (10:16→15:22)
[2018-11-18] MEDS: ONDANSETRON 4 MG/2 ML (SDV) Z0FRAN IV PRN (10:18)
[2018-11-18 11:40] VITALS: BP 126/81
--- NOTE | 2018-11-18 15:24 | NUR ---
AMBULATING IN HALLWAYS. Addendum: 11/18/18 at 1525 by ALYSON RHOADES RN Amended: Links added.
[2018-11-18 16:00] VITALS: BP 128/83
[2018-11-18 16:58] VITALS: BP 128/83
--- NOTE | 2018-11-18 17:05 | NUR ---
SUNNY WETZEL demonstrates understanding of discharge instructions and accurately returns instructions upon questioning. Copy of Post-Discharge Instructions and Medication Discharge Instructions given to PATIENT AND SIGNIFICANT OTHER. SUNNY WETZEL is able to manage continuing needs after discharge. Patients belongings returned to PATIENT. Skin dry and intact; no breakdown noted. Patient discharged from 404-1 on 11/18/2018 at 1649 . SUNNY WETZEL left floor via AMBULATORY, accompanied by FAMILY AND STAFF.
--- NOTE | 2018-11-18 17:27 | Progress Note - Surgery ---
[facility] 11/18/18 1727: Subjective Date Seen by a Provider: Nov 18, 2018 Time Seen by a Provider: 10:30 Subjective/Events-last exam Patient is experiencing headaches since last night. Has not had a bowel movement but is passing flatus. denies any abdominal pain. small bowel follow through showed no obstruction. Discussed discharging patient today. Review of Systems General: No Chills HEENT: Head Aches Pulmonary: No Dyspnea, No Cough Cardiovascular: No: Chest Pain, Palpitations, Edema Gastrointestinal: No: Nausea, Vomiting, Abdominal Pain, Diarrhea, Melena, Hematochezia Genitourinary: No Dysuria Neurological: No: Incoordination, Change in speech, Confusion, Seizures Objective Exam Vital Signs Date Time Temp Pulse Resp B/P (MAP) Pulse Ox O2 Delivery O2 Flow Rate FiO2 11/18/18 16:58 37.1 62 18 128/83 98 Room Air 11/18/18 16:00 37.1 62 18 128/83 (98) 98 Room Air 11/18/18 11:40 36.7 64 16 126/81 (96) 95 Room Air 11/18/18 09:00 36.8 62 14 125/70 (88) 94 Room Air 11/18/18 08:00 Room Air 11/18/18 04:00 36.2 59 18 103/65 (78) 90 Room Air 11/17/18 23:59 36.8 80 16 104/70 (81) 95 Room Air 11/17/18 20:00 37.5 68 18 112/71 (85) 94 Room Air 11/17/18 19:45 Room Air I & O 11/18/18 07:00 Intake Total 1000 ml Output Total 450 ml Balance 550 ml Capillary Refill : General Appearance: No Apparent Distress, WD/WN HEENT: PERRL/EOMI, Pharynx Normal Neck: Normal Inspection, Non Tender, Supple Respiratory: Chest Non Tender, No Accessory Muscle Use, No Respiratory Distress Cardiovascular: Regular Rate, Rhythm, No Edema Gastrointestinal: non tender, soft Extremity: Normal Inspection, Non Tender, No Pedal Edema Neurologic/Psychiatric: Alert, Oriented x3, No Motor/Sensory Deficits, Normal Mood/Affect, robotics technician II-XII Norm as Tested Skin: Normal Color, Warm/Dry Lymphatic: No Adenopathy Results Lab Laboratory Tests 11/18/18 05:55: White Blood Count 6.5, Red Blood Count 5.00, Hemoglobin 14.9, Hematocrit 44, Mean Corpuscular Volume 88, Mean Corpuscular Hemoglobin 30, Mean Corpuscular Hemoglobin Concent 34, Red Cell Distribution Width 13.5, Platelet Count 177, Mean Platelet Volume 10.5H, Neutrophils (%) (Auto) 60, Lymphocytes (%) (Auto) 24, Monocytes (%) (Auto) 12, Eosinophils (%) (Auto) 3, Basophils (%) (Auto) 0, Neutrophils # (Auto) 3.9, Lymphocytes # (Auto) 1.6, Monocytes # (Auto) 0.8, Eosinophils # (Auto) 0.2, Basophils # (Auto) 0.0, Sodium Level 140, Potassium Level 4.1, Chloride Level 107, Carbon Dioxide Level 25, Anion Gap 8, Blood Urea Nitrogen 15, Creatinine 1.10, Estimat Glomerular Filtration Rate > 60, BUN/Creatinine Ratio 14, Glucose Level 93, Calcium Level 8.9, Corrected Calcium 9.1, Total Bilirubin 0.6, Aspartate Amino Transf (AST/SGOT) 22, Alanine Aminotransferase (ALT/SGPT) 24, Alkaline Phosphatase 63, Total Protein 6.5, Albumin 3.7 Assessment/Plan Assessment/Plan Assessment/Plan partial small bowel obstruction - resolved - small bowel follow through showed no obstruction. abdominal pain periumbilical - resolved discussed discharge with patient recommended flu vaccine unrestricted diet Clinical Quality Measures DVT/VTE Risk/Contraindication: Risk Factor Score Per Nursin RFS Level Per Nursing on Admit: 1=Low/No VTE PPX DEMARCO CELIS DO 11/18/18 1920: Subjective Subjective/Events-last exam Patient not having any abdominal pain. Passing flatus. Has headache, which has from time to time.Went for small bowel follow through this am with no evidence of obstruction and dilated loops resolved. No evidence of any mass. Objective Exam General Appearance: No Apparent Distress, WD/WN HEENT: PERRL/EOMI, Normal ENT Inspection Neck: Normal Inspection, Non Tender, Supple Respiratory: Chest Non Tender, No Accessory Muscle Use, No Respiratory Distress Cardiovascular: Regular Rate, Rhythm Gastrointestinal: non tender, soft Extremity: Normal Inspection, Non Tender Neurologic/Psychiatric: Alert, Oriented x3, Normal Mood/Affect Skin: Normal Color, Warm/Dry Lymphatic: No Adenopathy Assessment/Plan Assessment/Plan Assessment/Plan psbo, abominal pain periumbilical resolved and small bowel follow through not showing any evidence of obstruction. will start on clears and then if tolerates okay to dc home patient in agreement with plan. patient understands has possibility of having this return if does need to be reevaluated at that time. Final Diagnosis psbo, periumbilical abdominal pain -resolved Supervisory-Addendum Brief Verification & Attestation Participated in pt care: history, MDM, physical Personally performed: exam, history, MDM, supervision of care Care discussed with: Medical Student Procedures: n/a Results interpretation: Verified all documentation Verification and Attestation of Medical Student E/M Service A medical student performed and documented this service in my presence. I reviewed and verified all information documented by the medical student and made modifications to such information, when appropriate. I personally performed the physical exam and medical decision making. Demarco Celis, Nov 18, 2018,19:21 [facility] Nov 18, 2018 17:27 DEMARCO CELIS DO Nov 18, 2018 19:20
== END 2018-11-18 16:49 | disposition home or self-care (01) | DRG 390 ==
LOC: 4TH 14:02
PROVIDERS: ADMIT Surgery; ATTEND Surgery
DX: K56.600 Partial intestinal obstruction, unspecified as to cause (principal); K21.9 Gastro-esophageal reflux disease without esophagitis; M19.91 Primary osteoarthritis, unspecified site
CPT/HCPCS: 36415; 74176; 74250; 80053; 85025

== ENCOUNTER → 2018-11-17 | Outpatient (CLI) | payer BC ==
[~2018-11-17] MED LIST changes: +PANT40TA3 PO; +PSYL1PAC10 PO; +SUCR1TAB36 PO
--- NOTE | 2018-11-17 14:19 | Diagnostic Imaging Report ---
PROCEDURE: CT abdomen and pelvis without contrast. TECHNIQUE: Multiple contiguous axial images were obtained through the abdomen and pelvis without the use of intravenous contrast. Auto Exposure Controls were utilized during the CT exam to meet ALARA standards for radiation dose reduction. INDICATION: Upper abdominal pain and vomiting. COMPARISON: No prior studies are available for comparison. FINDINGS: Imaging through the lung bases show some linear scarring or atelectasis in the right lower lobe. The liver demonstrates generalized low density consistent with hepatic steatosis. No discrete liver mass is identified. Gallbladder is unremarkable. No biliary duct dilatation is seen. The pancreas and spleen are unremarkable apart from a small partially calcified low-density lesion in the inferior tip of the spleen measuring 12 mm. No adrenal mass is identified. No definite renal calculi or hydronephrosis is identified. Aorta is nonaneurysmal. There are moderately distended and fluid-filled small bowel loops in the mid and left abdomen. There is a transition to normal caliber small bowel loops. Transition may be in the left lower quadrant, exact etiology indeterminate. Colon is decompressed. There is diverticulosis of the sigmoid colon but no evidence of acute diverticulitis. Appendix is unremarkable in the right lower quadrant. No free fluid or fluid collection is identified. Bladder is unremarkable. Prostate is enlarged. IMPRESSION: 1. Hepatic steatosis. 2. Moderate fluid-filled distention of small bowel loops in the mid and left abdomen with transition to normal caliber bowel loops. Findings are consistent with small bowel obstruction. No free air or abscess formation is seen at this time. 3. Uncomplicated sigmoid diverticulosis. 4. Prostatomegaly. Report was faxed to office of Dr. Dooley by filomena at 2:19p.m. Dictated by: Dictated on workstation # [id number]
== END ==
LOC: RAD 11:16
PROVIDERS: ATTEND Family Medicine
DX: K56.609 Unspecified intestinal obstruction, unspecified as to partial versus complete obstruction (principal); K76.0 Fatty (change of) liver, not elsewhere classified; K63.89 Other specified diseases of intestine; K57.30 Diverticulosis of large intestine without perforation or abscess without bleeding; N40.0 Benign prostatic hyperplasia without lower urinary tract symptoms
CPT/HCPCS: 74176

== ENCOUNTER 2020-11-07 05:30 | Outpatient (RCR) | payer BC ==
[~2020-11-07 05:30] MED LIST changes: +ASCO500C17 PO; -CETI10TA20 PO; +CETI10TA49 PO; -MECL-106 PO; +MECL-149 PO; +NF-VITD400 PO; +PANT40TA52 PO; +PSYL1PAC10 PO
== END 2020-11-07 08:56 | disposition home or self-care (01) ==
LOC: PREOP 05:30
PROVIDERS: ATTEND Specialist
DX: Z01.818 Encounter for other preprocedural examination (principal); C44.319 Basal cell carcinoma of skin of other parts of face; Z20.822 Contact with and (suspected) exposure to COVID-19
CPT/HCPCS: 87635

== ENCOUNTER 2020-11-09 12:10 | Day surgery (SDC) | payer BC ==
[~2020-11-09] VITALS: Ht 180.3 cm; Wt 91.6 kg
[2020-11-09] VITALS (9 sets, daily range): BP systolic 123–152; BP diastolic 88–95
[~2020-11-09 12:10] MED LIST changes: +SCOP1PAT10 TD; -SCOP1PAT11 TD
[2020-11-09] MEDS ORDERED: LACTATED RINGERS 1,000 ML IV PRN (13:00)
[2020-11-09] MEDS ORDERED: ceFAZolin 2 GM IV Premixed 50 ML IV ONE (13:00)
[2020-11-09] MEDS ORDERED: LIDOCAINE PF 2% 5 ML (XYLOCAINE) VIAL ONE (13:50)
[2020-11-09] MEDS ORDERED: proPOfol 200 MG/20 ML (DIPRIVAN) VIAL IV ONE ×6 (13:50→18:37)
[2020-11-09] MEDS ORDERED: LIDOCAINE/EPI 2% 1:100,00 (XYLOCAINE) 20 ML VIAL ONE ×2 (13:51→17:21)
--- NOTE | 2020-11-09 13:54 | Progress Note-Pre Operative ---
Pre-Operative Progress Note H&P Reviewed The H&P was reviewed, patient examined and no changes noted. Date Seen by Provider: Nov 09, 2020 Time Seen by Provider: 13:00 Date H&P Reviewed: Nov 09, 2020 Time H&P Reviewed: 13:15 Pre-Operative Diagnosis: BCCA left cheek DEVORAH BRADFORD DDS Nov 09, 2020 13:54
[2020-11-09] MEDS ORDERED: HYDROcodone/APAP 7.5MG-325 MG/15 ML (LORTAB) UDC PO PRN ×2 (14:00)
[2020-11-09] MEDS ORDERED: ceFAZolin INJECTION 1,000 MG in WATER (STERILE) FOR INJECTION 10 ML IV SCH ×4 (14:00)
[2020-11-09] MEDS ORDERED: BSS 15 ML ONE (15:39)
[2020-11-09] MEDS ORDERED: ROPIVACAINE 5MG/ML 30ML VIAL ONE (17:04)
[2020-11-09] MEDS ORDERED: ceFAZolin INJECTION 2,000 MG ONE (18:03)
[2020-11-09] MEDS ORDERED: PROPOFOL INJECTION 50 ML IV ONE (18:12)
--- NOTE | 2020-11-09 19:37 | Anesthesia-General Post-Op ---
MAC Patient Condition Mental Status/LOC: Same as Preop Cardiovascular: Satisfactory Nausea/Vomiting: Absent Respiratory: Satisfactory Pain: Controlled Complications: Absent Post Op Complications Complications None Follow Up Care/Instructions Patient Instructions None needed. Anesthesiology Discharge Order Discharge Order Patient is doing well, no complaints, stable vital signs, no apparent adverse anesthesia problems. LEONIDES WILSON DO Nov 09, 2020 19:37
[2020-11-09] MEDS ORDERED: ONDANSETRON 4 MG/2 ML (SDV) Z0FRAN IVP PRN (19:45)
[2020-11-09] MEDS ORDERED: morphine INJ 10 MG/ML 1ML (SYR OR VIAL) IVP ONE (19:45)
--- NOTE | 2020-12-06 03:18 | OPERATIVE REPORT ---
DATE OF SERVICE: 11/09/2020 SALES ENABLEMENT CONSULTANT SURGEON: Devorah Bradford DDS MAIL MESSENGER CONTRACTOR: Scrub nurse. ANESTHESIA: Monitored anesthesia care. BLOOD LOSS: 50 mL. FLUIDS: 1400 mL of crystalloid. COUNTS: Instrument, needle and sponge count were correct x2. PREOPERATIVE DIAGNOSIS: Basal cell carcinoma left dorsum of the nose, at the junction of the cheek. POSTOPERATIVE DIAGNOSIS: Basal cell carcinoma left dorsum of the nose, at the junction of the cheek. Basal cell carcinoma of left cheek confirmed by frozen section. PROCEDURE: Excision with primary reconstruction with direct advancement flap. HISTORY OF PRESENT ILLNESS AND INDICATIONS FOR PROCEDURE: The patient is an otherwise healthy 65-year-old white male, who presented with a lesion, which has been operated on in the past. With this lesion was originally had clear margins, but this was approximately a decade ago. After evaluating this, it appeared that again he either had a new primary or recurrence of his basal cell carcinoma. I spoke with him and we elected to perform the procedure at [facility] due to the fact that we would be able to have a frozen section completed at this time to make sure that we had clear margins. After affording him the opportunity for questions, then these were answered and he was scheduled for surgery at the earliest opportune time. DESCRIPTION OF PROCEDURE: The patient was taken to the operating room and placed on the operating table. Intravenous access had been gained in day surgery. After he was adequately sedated, we deposited local anesthesia in and around the left cheek and infraorbital rim and on the lateral alar cartilages and the dorsum of the nose. This allowed to take effect, I then excised around the lesion, taking approximately 3 mm margin and then dissected inferiorly down through the skin and subcuticular tissue and then this lesion was removed, it was approximately 1.5 x 1.5 cm. This was marked and sent for frozen section. After this was determined that we had positive margins including the margin, we then divided into six regions and then we proceeded to take continued frozen sections in this manner. Firstly, we gained the clear margin after removing more subcuticular fat tissue down to the level of the nasalis muscle and this was marked and sent for frozen section. This was completed one more time and we were able to get a clear deep margin. After this, we started inferiorly just above the ala of the nose and then an alar cartilage. We then removed approximately 2 mm strip, marked this. This was approximately 2 mm x 1.5 cm and then this was marked and sent for frozen as well as one directly on the dorsum and then going around to the superior aspect of the lesion. These were also positive. Continued laterally into the inferior to the infraorbital rim and thus same procedure was completed with a 2 mm strip. This also was positive as well as the lateral margin. Again, we completed this procedure until we were able to ultimately take 18 frozen sections and finally we were able to get clear margins. However, at this point, the size of the lesion was approximately 3 x 2 cm extending out to the lateral aspect of the cheek directly inferior to the pupil. After this, we used a #15 blade to excise along the labiomental fold down approximately 1 inch, stopping 1 inch to the inferior border of the mandible and then extended this laterally to the lateral past the lateral canthus and approximately 2 cm. I was then able to undermine extensively and then also excised Burow's triangles at the lateral extension of the flap. After this was undermined extensively, I was able to do a direct advancement flap of the cheek with a slight rotation into the defect. I also undermined extensively over the dorsum of the nose and on the contralateral side. After this, I was able to get a tension free closure of the wound, which was just superior to the lateral alar cartilages and the ala of the nose and then inferior to the inferior border. Fortunately, we were able to stay out of the lacrimal system. Then, we closed with 4-0 Vicryl for the deep sutures to take the tension off the wound as well. I then closed the subcuticular tissue with 4-0 chromic and then lastly the skin with 6-0 Prolene. We then placed a compressive dressing and it was sterile to decrease the possibility of hematoma formation. This completed our procedure. He was allowed to emerge from his intravenous sedation and then he was transported to the recovery room, assessed to have stable vital signs, breathing spontaneously with a pulse ox of 99%. Job ID: [id number] DocumentID: [id number] Dictated Date: 12/05/2020 16:16:44 Analytical Engineer Date: 12/06/2020 02:22:56 Dictated By: DEVORAH BRADFORD DDS
== END 2020-11-09 20:53 | disposition home or self-care (01) ==
LOC: SDC 12:10
PROVIDERS: ATTEND Specialist
DX: C44.319 Basal cell carcinoma of skin of other parts of face (principal); K21.9 Gastro-esophageal reflux disease without esophagitis; Z79.899 Other long term (current) drug therapy
CPT/HCPCS: 87081; 88305; 88331; 88332

== ENCOUNTER → 2020-11-13 | Outpatient (CLI) | payer BC ==
[~2020-11-13] MED LIST changes: -SCOP1PAT10 TD; +SCOP1PAT11 TD
--- NOTE | 2020-11-13 10:52 | Diagnostic Imaging Report ---
EXAMINATION: CT abdomen and pelvis without contrast. TECHNIQUE: Multiple contiguous axial images were obtained through the abdomen and pelvis without the use of intravenous contrast. All CT scans use one or more of the following dose optimizing techniques: automated exposure control, MA and/or KvP adjustment based on patient size and exam type or iterative reconstruction. HISTORY: Prostate cancer. COMPARISON: 11/17/2018 FINDINGS: Limited views of the lower thorax are unremarkable. Liver is steatotic. No focal liver lesions are seen. There is no biliary ductal dilation. Gallbladder is normal. Pancreas is normal. Spleen is normal. Adrenal glands are normal. The kidneys are normal. There is no hydronephrosis. Urinary bladder is normal. Visualized bowel is normal in caliber without obstruction or inflammation. There is diverticulosis without diverticulitis. No free fluid or air. No abdominal or pelvic lymphadenopathy. Aorta is normal in caliber without aneurysm. There are no suspicious osseous lesions. IMPRESSION: 1. No metastatic disease seen in the abdomen or pelvis. 2. Steatotic liver. Dictated by: Dictated on workstation # [id number]
--- NOTE | 2020-11-13 15:07 | Diagnostic Imaging Report ---
INDICATION: New diagnosis of prostate cancer. TECHNIQUE: The patient was administered 26.0 mCi technetium 99m MDP intravenously. After an incubation delay, anterior and posterior whole-body planar images are obtained. CORRELATION STUDY: None. FINDINGS: There is generally normal uptake and excretion throughout the majority of the axial and appendicular skeleton. There is slight asymmetric uptake centered at the right acromioclavicular joint, likely degenerative. There is also very slight asymmetric uptake over the left posterior hip and inferior ramus likely of no significance. Normal uptake by the kidneys with excretion into the urinary bladder. IMPRESSION: 1. Relatively unremarkable examination baseline bone scan. No current abnormal uptake to suggest active blastic metastatic disease. Dictated by: Dictated on workstation # [id number]
== END ==
LOC: CARD 11:00
PROVIDERS: ATTEND Urology
DX: C61 Malignant neoplasm of prostate (principal); K76.0 Fatty (change of) liver, not elsewhere classified
CPT/HCPCS: 74176; 78306; A9503

== ENCOUNTER 2020-12-03 09:26 | Outpatient (RCR) | payer BC ==
[~2020-12-03 09:26] MED LIST changes: +SCOP1PAT10 TD; -SCOP1PAT11 TD
== END 2021-02-22 | disposition home or self-care (01) ==
LOC: ONC 09:26
PROVIDERS: ATTEND Radiology Radiation Oncology
DX: C61 Malignant neoplasm of prostate (principal); Z80.42 Family history of malignant neoplasm of prostate; Z80.0 Family history of malignant neoplasm of digestive organs
CPT/HCPCS: 99204

== ENCOUNTER 2021-04-23 09:24 | Outpatient (RCR) | payer BC ==
[2021-05-08] MEDS ORDERED: ASPI-808 PO (15:20)
[2021-05-15] MEDS ORDERED: CIPR-225 PO (09:25)
[2021-05-15] MEDS ORDERED: PHEN-640 PO (09:25)
[2021-05-15] MEDS ORDERED: KETO10TA PO (09:25)
== END 2021-05-23 | disposition home or self-care (01) ==
LOC: ONC 09:24
PROVIDERS: ATTEND Radiology Radiation Oncology
DX: C61 Malignant neoplasm of prostate (principal)
CPT/HCPCS: 76873; G0463; 99213

== ENCOUNTER 2021-05-08 05:35 | Outpatient (CLI) | payer BC ==
[~2021-05-08] VITALS: Ht 180.3 cm; Wt 91.6 kg
[2021-05-08] MEDS ORDERED: ASPI-808 PO (15:20)
== END 2021-05-08 15:25 | disposition home or self-care (01) ==
LOC: PREOP 05:35
PROVIDERS: ATTEND Urology
DX: Z01.818 Encounter for other preprocedural examination (principal)

== ENCOUNTER 2021-05-15 06:35 | Day surgery (SDC) | payer BC ==
[~2021-05-15] VITALS: Ht 180 cm; Wt 91.6 kg
[2021-05-15] VITALS (9 sets, daily range): BP systolic 108–139; BP diastolic 65–92
[~2021-05-15 06:35] MED LIST changes: +ASPI-808 PO
[2021-05-15] MEDS ORDERED: cefTRIAXone 1 GM PRE-MIX 50 ML IV ONE (06:45)
[2021-05-15] MEDS ORDERED: BACITRACIN OINTMENT 28 GM TUBE ONE (07:03)
[2021-05-15] MEDS ORDERED: ONDANSETRON 4 MG/2 ML (SDV) Z0FRAN ONE (07:04)
[2021-05-15] MEDS ORDERED: LIDOCAINE PF 2% 5 ML (XYLOCAINE) VIAL ONE (07:04)
[2021-05-15] MEDS ORDERED: fentaNYL INJ 100 MCG/2 ML AMP ONE (07:04)
[2021-05-15] MEDS ORDERED: proPOfol 200 MG/20 ML (DIPRIVAN) VIAL IV ONE (07:04)
--- NOTE | 2021-05-15 07:09 | Progress Note-Pre Operative ---
Pre-Operative Progress Note H&P Reviewed The H&P was reviewed, patient examined and no changes noted. Date Seen by Provider: May 15, 2021 Time Seen by Provider: 07:09 Date H&P Reviewed: May 15, 2021 Time H&P Reviewed: 07:09 Pre-Operative Diagnosis: CA PROSTATE SANDRA CRONIN MD May 15, 2021 07:09
[2021-05-15] MEDS ORDERED: IOHEXOL 300 MG/ML 30 ML (OMNIPAQUE 300) VIAL INJ ONE (07:15)
[2021-05-15] MEDS: LACTATED RINGERS 1,000 ML IV PRN ×2 (07:16→08:00)
[2021-05-15] MEDS ORDERED: ONDANSETRON 4 MG/2 ML (SDV) Z0FRAN IVP PRN (07:30)
[2021-05-15] MEDS ORDERED: morphine INJ 10 MG/ML 1ML (SYR OR VIAL) IVP ONE (07:30)
--- NOTE | 2021-05-15 07:50 | Progress Note-Post Operative ---
Post-Operative Progess Note Surgeon (s)/Sample Wrapper (s) Surgeon SANDRA CRONIN MD, JEFFREY CLARK MD Sample Wrapper: NONE Pre-Operative Diagnosis CA PROSTATE Post-Operative Diagnosis SAME Procedure & Operative Findings Date of Procedure 05/15/21 Procedure Performed/Findings BRACHYTHERAPY, CYSTOGRAM, AND SPACE OAR Anesthesia Type GENERAL Estimated Blood Loss Estimated blood loss (mL): NEGLIGIBLE Specimens/Packing Specimens Removed NONE Packing: NONE SANDRA CRONIN MD May 15, 2021 07:50
--- NOTE | 2021-05-15 07:54 | Discharge Inst-Urology ---
Discharge Inst-Urology Reconcile Patient Problems Problems Reviewed?: Yes Final Diagnosis CA PROSTATE Patient Instructions/Follow Up Plan/Assessment/Instructions Discharge with rich and leg bag day time and large bag night time with instructions Come to office Thursday 9am to [facility] Please make appointment to been seen in office by me in 2 weeks. Increase oral fluids for 48 hours and then as needed. Showers, no bath Keep bowels soft and moving Follow [facility] instructions for follow up and else Diet as tolerated. Rest for 48 hours Once no bleeding for 48 hours, may resume ASA If questions or concerns contact your physician Or seek help at emergency department. SANDRA CRONIN MD May 15, 2021 07:54
[2021-05-15] MEDS ORDERED: SEVOFLURANE (ULTANE) 15 ML INHAL SOLN ONE (08:49)
--- NOTE | 2021-05-15 09:23 | Diagnostic Imaging Report ---
INDICATION: Prostate cancer. IMPRESSION: 24.3 seconds of fluoroscopy and AP digital images were used in Surgery by Dr. Connor during brachytherapy seed placement. Dictated by: Dictated on workstation # [id number]
[2021-05-15] MEDS ORDERED: KETO10TA PO (09:25)
[2021-05-15] MEDS ORDERED: PHEN-640 PO (09:25)
[2021-05-15] MEDS ORDERED: CIPR-225 PO (09:25)
[2021-05-15] MEDS ORDERED: PHENAZOPYRIDINE 100 MG (PYRIDIUM) TABLET PO ONE (10:00)
--- NOTE | 2021-05-15 11:59 | Anesthesia-General Post-Op ---
General Patient Condition Mental Status/LOC: Same as Preop Cardiovascular: Satisfactory Nausea/Vomiting: Absent Respiratory: Satisfactory Pain: Controlled Complications: Absent Post Op Complications Complications None Follow Up Care/Instructions Patient Instructions None needed. Anesthesia/Patient Condition Patient Condition Patient is already discharged to home but he was doing well prior to his discharge with no complaints, stable vital signs, no apparent adverse anesthesia problems. LEONIDES WILSON DO May 15, 2021 11:59
== END 2021-05-15 11:05 | disposition home or self-care (01) ==
LOC: SDC 06:35
PROVIDERS: ATTEND Urology
DX: C61 Malignant neoplasm of prostate (principal); Z98.890 Other specified postprocedural states
CPT/HCPCS: 55874; 55876; 76000; 76965; 77290; 77318; 77332; 77370; 77470; 77778; 87081; C1715 ×2; C1889; C2643

== ENCOUNTER 2021-06-12 08:32 | Outpatient (RCR) | payer BC ==
[~2021-06-12 08:32] MED LIST changes: +CIPR-225 PO; +KETO10TA PO; +PHEN-640 PO
== END 2021-06-22 | disposition home or self-care (01) ==
LOC: ONC 08:32
PROVIDERS: ATTEND Radiology Radiation Oncology
DX: C61 Malignant neoplasm of prostate (principal)
CPT/HCPCS: 77290; 77295

== ENCOUNTER → 2021-07-23 | Outpatient (RCR) | payer BC | END | disposition home or self-care (01) | LOC: ONC 07-03 08:35 | PROVIDERS: ATTEND Radiology Radiation Oncology | DX: Z51.0 Encounter for antineoplastic radiation therapy (principal); C61 Malignant neoplasm of prostate | CPT/HCPCS: 77300; 77301; 77334; 77336; 77338; 77385; 77470 ==

== ENCOUNTER 2021-08-15 07:42 | Outpatient (RCR) | payer BC | END 2021-08-22 | disposition home or self-care (01) | LOC: ONC 07:42 | PROVIDERS: ATTEND Radiology Radiation Oncology | DX: Z51.0 Encounter for antineoplastic radiation therapy (principal); C61 Malignant neoplasm of prostate | CPT/HCPCS: 77336; 77385 ==

== ENCOUNTER 2021-10-03 08:56 | Outpatient (RCR) | payer BC | END 2021-10-23 | disposition home or self-care (01) | LOC: ONC 08:56 | PROVIDERS: ATTEND Radiology Radiation Oncology | DX: C61 Malignant neoplasm of prostate (principal) | CPT/HCPCS: 99213 ==

== ENCOUNTER 2022-04-03 08:59 | Outpatient (RCR) | payer BC | END 2022-04-22 | disposition home or self-care (01) | LOC: ONC 08:59 | PROVIDERS: ATTEND Radiology Radiation Oncology | DX: C61 Malignant neoplasm of prostate (principal) | CPT/HCPCS: 99213 ==

== ENCOUNTER 2022-06-24 05:43 | Outpatient (CLI) | payer BC ==
[~2022-06-24] VITALS: Ht 180.3 cm; Wt 97.7 kg
== END 2022-06-24 17:34 | disposition home or self-care (01) ==
LOC: PREOP 05:43
PROVIDERS: ATTEND Specialist
DX: Z01.818 Encounter for other preprocedural examination (principal)

== ENCOUNTER 2022-06-30 12:07 | Day surgery (SDC) | payer BC ==
[~2022-06-30] VITALS: Ht 180.3 cm; Wt 97.7 kg
[2022-06-30] VITALS (7 sets, daily range): BP systolic 110–132; BP diastolic 67–81
[2022-06-30] MEDS ORDERED: BACITRACIN OINTMENT 28 GM TUBE ONE (12:12)
[2022-06-30] MEDS ORDERED: LIDOCAINE/EPI 1%-1:100,000 (XYLOCAINE) 20ML ONE (12:12)
[2022-06-30] MEDS ORDERED: ceFAZolin INJECTION 2,000 MG in NS (IVPB) 50 ML IV ONE (12:15)
[2022-06-30] MEDS ORDERED: LACTATED RINGERS 1,000 ML IV PRN (12:15)
[2022-06-30] MEDS ORDERED: PROPOFOL INJECTION 50 ML IV ONE ×2 (12:57→14:25)
--- NOTE | 2022-06-30 12:59 | Progress Note-Pre Operative ---
Pre-Operative Progress Note Date of Available H&P: June 30, 2022 Date H&P Reviewed: June 30, 2022 Time H&P Reviewed: 12:00 Pre-Operative Diagnosis: BCCA left eyebrow glabellar region DEVORAH BRADFORD DDS June 30, 2022 12:59
[2022-06-30] MEDS ORDERED: HYDROcodone/APAP 7.5MG-325 MG/15 ML (LORTAB) UDC PO PRN (13:00)
[2022-06-30] MEDS ORDERED: ceFAZolin INJECTION 1,000 MG in NS (IVPB) 50 ML IV SCH (14:00)
[2022-06-30] MEDS ORDERED: ROPIVACAINE 5MG/ML 30ML VIAL ONE (14:04)
[2022-06-30] MEDS ORDERED: BSS 15 ML ONE (14:20)
[2022-06-30] MEDS ORDERED: proPOfol 200 MG/20 ML (DIPRIVAN) VIAL IV ONE (14:24)
[2022-06-30] MEDS ORDERED: LIDOCAINE/EPI 1%-1:100,000 (XYLOCAINE) 20ML INJ ONE (14:25)
[2022-06-30] MEDS ORDERED: BSS 15 ML IO ONE (14:27)
[2022-06-30] MEDS ORDERED: ROPIVACAINE 5MG/ML 30ML VIAL INJ ONE (14:45)
[2022-06-30] MEDS ORDERED: BACITRACIN OINTMENT 28 GM TUBE TOP ONE (14:47)
--- NOTE | 2022-06-30 15:05 | Anesthesia-General Post-Op ---
MAC Patient Condition Mental Status/LOC: Same as Preop Cardiovascular: Satisfactory Nausea/Vomiting: Absent Respiratory: Satisfactory Pain: Controlled Complications: Absent Post Op Complications Complications None Follow Up Care/Instructions Patient Instructions None needed. Anesthesiology Discharge Order Discharge Order Patient is doing well, no complaints, stable vital signs, no apparent adverse anesthesia problems. No complications reported per nursing. LEONIDES WILSON DO June 30, 2022 15:05
--- NOTE | 2022-06-30 15:07 | Progress Note-Post Operative ---
Post-Operative Progess Note Surgeon (s)/Chefs (s) Surgeon DEVORAH BRADFORD DDS Pre-Operative Diagnosis BCCA left eyebrow glabellar region Post-Operative Diagnosis same Procedure & Operative Findings Date of Procedure excision of BCCA with transition and rotational flap06/30/22 Procedure Performed/Findings same Anesthesia Type iv sedation Estimated Blood Loss Estimated blood loss (mL): minimal Specimens/Packing Specimens Removed sent for frozen and permanent Packing: none DEVORAH BRADFORD DDSanjuana June 30, 2022 15:07
[2022-06-30] MEDS ORDERED: ONDANSETRON 4 MG/2 ML (SDV) Z0FRAN IVP PRN (15:15)
[2022-06-30] MEDS ORDERED: morphine INJ 10 MG/ML 1ML (SYR OR VIAL) IVP ONE (15:15)
--- NOTE | 2022-07-17 07:06 | OPERATIVE REPORT ---
DATE OF SERVICE: 06/30/2022 SERVICE: meter reader. DRAWING IN HAND: Jessica López. ANESTHESIA: General endotracheal. COMPLICATIONS: There were no complications. BLOOD LOSS: Minimal. FLUIDS: 750 mL of crystalloid. Instrument, needle and sponge count were correct x2. POSTOPERATIVE DIAGNOSIS: [ ]. PROCEDURES: Excision with primary reconstruction. HISTORY OF PRESENT ILLNESS: The patient is a 65-year-old otherwise healthy white male who presented to my clinic. I have operated on him previously in the past year as well as in the past 2 decades. At this point, he has suspicious lesion. We advised him that this was almost certainly basal cell carcinoma. Evaluation need to have a biopsy with frozen section and due to his past history of basal cell carcinomas, we will go ahead and schedule this at [facility] and perform an excision with primary reconstruction and frozen section. After this, he of course was given opportunity and time for questions, these were answered and then he was scheduled for surgery at the earliest opportune time. DESCRIPTION OF PROCEDURE: The patient was taken to the operating room and placed on the operating table. Appropriate monitors were placed and intravenous sedation. After this, we did pose local anesthesia in and around the glabellar region blocking the one supraorbital nerve and extending to the medial canthus. We also are going to perform a scar revision on her previous resection, which has been performed in the malar region, anesthesia was deposited in the distribution of the axillary nerve. These were allowed to take effect, excised the skin, which was approximately 1.5 x 1 cm and a full-thickness flap down to the muscular layer through the subcu and this was labeled and sent for frozen section. Once it was determined that we had clear margins; however, [ ] extremely closed, we then excised some additional skin in this region and this was sent for permanent. After this I undermined extensively made a horizontal incision approximately the level of centimeter above the left eyebrow, undermined extensively to the entire length of the supraorbital rim. We dissected medially superficial to the muscular layer of the glabellar region and forehead region, then did a direct advancement flap, removing the entire full thickness skin and the upper left eyebrow. We then excised excess of tissue in the medial canthal region in a horizontal fashion excised and then also the direct advancement and rotational flap from the sensory lacrimal region and just medial to that from the dorsum of the nose to close the defect. Any excessive [ ] was removed and a bur was triangle technique. After this, we made sure wound was tension free and then we closed with subcuticular layers with 4-0 chromic and the skin with 6-0 Prolene. After this, we then turned our attention to the left alar base region. He had some tenting from his previous resection and reconstruction. I excised a small ellipse of tissue on the curvilinear aspect of the alar rim and base. This was excised full thickness and then once again closed with 4-0 chromic and 6-0 Prolene. This completed our procedure. He was allowed to emerge from his anesthetic. He was alert and oriented x3 and then he was transferred to the recovery room and assessed to have stable vital signs, breathing spontaneously with a pulse ox 99%. Job ID: [id number] DocumentID: [id number] Dictated Date: 07/16/2022 17:23:18 Front Loader Residential Driver Date: 07/17/2022 00:02:00 Dictated By: DEVORAH BRADFORD DDS
== END 2022-06-30 16:10 | disposition home or self-care (01) ==
LOC: SDC 12:07
PROVIDERS: ATTEND Specialist
DX: C44.319 Basal cell carcinoma of skin of other parts of face (principal); L98.8 Other specified disorders of the skin and subcutaneous tissue; E66.9 Obesity, unspecified; Z68.30 Body mass index [BMI] 30.0-30.9, adult
CPT/HCPCS: 87081; 88305; 88331